=== PATIENT | male | born 2000 | race Caucasian/White ===

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

== ENCOUNTER 2024-08-01 20:42 | Emergency (ER) | payer BC, SELFPAY ==
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
--- NOTE | ~2024-08-01 | XR_ITS ---
EXAMINATION: XR HAND, RIGHT CLINICAL INFORMATION: Right hand pain. COMPARISON: None available. TECHNIQUE: PA, lateral, and oblique views of the right hand. FINDINGS: The bones and soft tissues are normal. No fracture. Alignment is anatomic. Joint spaces are maintained. No erosions or soft tissue calcifications. XR/XR hand RT min 3V IMPRESSION: Unremarkable examination. Electronically signed by: Adam Larkin MD 08/01/2024 09:29 PM EDT
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
[2024-08-01 20:58] VITALS: BP 167/94; PULSE 116; RESP 20; TEMP 36.8; O2SAT 94; BMI 23.1
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
[2024-08-01 21:40] LABS: MANUAL DIFF FLAG NO
[2024-08-01 21:41] LABS: Basophils Percent Auto 0.3 % (0-2); Eosinophils Absolute Auto 0.1 X10*3/uL (0.0-0.4); Eosinophils Percent Auto 0.3 % (0-4); Hematocrit 42.5 % (42.0-52.0); Hemoglobin 15.7 g/dl (14.0-18.0); Imm Gran Abs Auto 0.06 X10*3/uL (0.00-0.03); Imm Gran Pct Auto 0.4 % (0.0-0.4); Lymphocytes Absolute Auto 1.7 X10*3/uL (1.2-4.9); Lymphocytes Percent Auto 11.7 % (20-40); Mean Corpuscular HGB Conc 36.9 g/dl (31.0-36.0); Mean Corpuscular Hemoglobin 33.8 pg (27.0-33.0); Mean Corpuscular Volume 91.6 fL (80.0-98.0); Mean Platelet Volume 8.7 fL (9.4-12.4); Monocytes Absolute Auto 0.9 X10*3/uL (0.1-1.2); Monocytes Percent Auto 6.3 % (2-11); Neutrophils Absolute Auto 11.7 x10*3/uL (2.0-8.3); Platelet Count 372 X10*3/uL (160-400); Red Blood Count 4.64 X10*6/uL (4.60-5.80); Red Cell Distribution Width 11.9 % (11.0-16.0); White Blood Count 14.5 X10*3/uL (4.8-10.8)
[2024-08-01 21:51] LABS: Ethanol 189 mg/dL
[2024-08-01 21:58] LABS: Alanine Aminotransferase 24 U/L (0-40); Albumin Level 4.9 g/dL (3.5-5.0); Alkaline Phosphatase 139 U/L (39-117); Anion Gap 21 (12-20); Aspartate Amino Transferase 51 U/L (5-37); Bilirubin Direct 0.3 mg/dL (0.0-0.5); Bilirubin Total 1.2 mg/dL (0.0-1.0); Blood Urea Nitrogen 10 mg/dL (9-16); C Reactive Protein 0.48 mg/dL (< or = 0.50); Calcium 10.2 mg/dL (8.4-10.2); Carbon Dioxide 24 mmol/L (22-29); Chloride 100 mmol/L (96-108); Creatinine Clr Calc Pharmacy 156.2; Estimated Glomerular Filt Rate > 60; Glucose Random 103 mg/dL (60-115); Potassium 3.3 mmol/L (3.3-5.1); Sodium 142 mmol/L (135-145); Total Protein 8.1 g/dL (6.5-8.0)
[2024-08-01 22:25] LABS: Erythrocyte Sedimentation Rate 5 MM/HR (0-15)
[2024-08-02 00:06] VITALS: BP 167/94; PULSE 116; RESP 20; TEMP 36.8; O2SAT 98
== END 2024-08-02 00:08 | disposition home or self-care (01) ==
PROVIDERS: Physician Assistant Medical; Emergency Provider Internal Medicine
DX: S67.190A Crushing injury of right index finger, initial encounter (principal); V86.59XA Driver of other special all-terrain or other off-road motor vehicle injured in nontraffic accident, initial encounter; F10.90 Alcohol use, unspecified, uncomplicated; Y90.6 Blood alcohol level of 120-199 mg/100 ml; Y93.89 Activity, other specified; Y92.9 Unspecified place or not applicable; Y99.9 Unspecified external cause status
CPT/HCPCS: 36415; 70450; 72125; 73130; 80048; 80076; 80307; 82550; 85025; 85652; 86140; 99282; 99284

== ENCOUNTER 2024-08-07 08:39 | Outpatient (REF) | payer BC, SELFPAY | END 2024-08-07 08:40 | disposition home or self-care (01) | LOC: HO.HOSX 08:39 | DX: M79.641 Pain in right hand (principal) | CPT/HCPCS: 73130 ==

== ENCOUNTER 2024-08-07 08:40 | Outpatient (AMB) | payer BC, SELFPAY ==
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
== END 2024-08-07 09:06 | disposition home or self-care (01) ==
LOC: HO.HOS 08:40
DX: S67.21XA Crushing injury of right hand, initial encounter (principal)
CPT/HCPCS: 99203

== ENCOUNTER 2025-02-16 04:17 | Emergency (ER) | payer BC, SELFPAY ==
--- NOTE | 2025-02-16 | ECG_ITS ---
Test Reason : ETOH Blood Pressure : */* mmHG Vent. Rate : 79 BPM Atrial Rate : 79 BPM P-R Int : 132 ms QRS Dur : 94 ms QT Int : 340 ms P-R-T Axes : 64 81 63 degrees QTcB Int : 389 ms Sinus rhythm with occasional Premature ventricular complexes Otherwise normal ECG No previous ECGs available Referred By: Generic ED Physician Electronically Signed By: Mark Preston
[2025-02-16 04:30] VITALS: BP 134/87; BP 135/80; PULSE 110; RESP 18; TEMP 37.2; O2SAT 98; O2SAT 99; BMI 22.6
--- NOTE | 2025-02-16 04:39 | MHC.EVENTN ---
PT [employer] WITH [employer], AND [employer] FROM [employer]. [facility] ARE ON [address] [facility]
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
[2025-02-16 05:20] VITALS: BP 134/87; PULSE 110; RESP 18; TEMP 37.2; O2SAT 99
== END 2025-02-16 05:41 ==
LOC: HO.ED 05:23
PROVIDERS: Emergency Provider Emergency Medicine
DX: S80.811A Abrasion, right lower leg, initial encounter (principal); R45.851 Suicidal ideations; F10.129 Alcohol abuse with intoxication, unspecified; X58.XXXA Exposure to other specified factors, initial encounter; Y93.9 Activity, unspecified; Y92.9 Unspecified place or not applicable; Y99.8 Other external cause status; Z79.899 Other long term (current) drug therapy; Y90.9 Presence of alcohol in blood, level not specified
CPT/HCPCS: 93005; 99285

== ENCOUNTER → 2025-02-16 04:57 | Outpatient (BNV) | payer BC, SELFPAY | PROVIDERS: Emergency Provider Emergency Medicine; Visit Provider Internal Medicine Cardiovascular Disease | DX: I49.3 Ventricular premature depolarization (principal) | CPT/HCPCS: 93010 ==

== ENCOUNTER 2025-03-26 14:28 | Emergency (ER) | payer BC, SELFPAY ==
--- NOTE | ~2025-03-26 | XR_ITS ---
EXAMINATION: XR FOOT, RIGHT CLINICAL INFORMATION: dropped ramp on foot COMPARISON: None available. TECHNIQUE: AP, lateral, and oblique views of the right foot. FINDINGS: The bones and soft tissues are normal. No fracture. Alignment is anatomic. Joint spaces are maintained. XR/XR foot RT min 3V IMPRESSION: Normal right foot. Electronically signed by: Giovanny Haney MD 03/26/2025 02:44 PM EDT
[2025-03-26 14:30] VITALS: BP 144/81; PULSE 81; RESP 16; TEMP 36.6; O2SAT 98; BMI 21.7
--- NOTE | 2025-03-26 14:36 | ED_ITS ---
HPI - Extremity Injury (Lower) General Chief Complaint: Extremity Injury, Lower Stated Complaint: Dropped Loading Ramp On R Foot- Swelling Time Seen by Provider: 03/26/25 14:44 Source: patient Mode of arrival: ambulatory Limitations: no limitations History of Present Illness ED Provider: Buffy June PA-C HPI Narrative: Patient is a 24 year old assigned male at with no reported medical history presenting to the emergency department today with a right great toe injury. Patient states that he dropped a loading ramp on his right great toe that is approximately 50lbs. Patient denies any dizziness, lightheadedness, abdominal pain, nausea, vomiting, fever, chills, blurry vision, double vision, loss of vision, chest pain, difficulty breathing, shortness of breath, back pain, night sweats, pain with urination, increased urinary frequency, increased urinary urgency, blood in his urine or stool, syncope or a near syncopal episode, bowel incontinence, bladder incontinence, or any other complaints at this time. Relieving factors: immobilization Exacerbating factors: movement and palpation Related Data Home Medications ?Medication ?Instructions ?Recorded ?Confirmed No Known Home Meds 08/07/24 08/07/24 Allergies Allergy/AdvReac Type Severity Reaction Status Date / Time codeine Allergy Unknown Verified 03/26/25 14:32 Review of Systems 2 Constitutional: Constitutional: Reports no additional constitutional complaints, Denies chills, Denies fever(s) and Denies night sweats Eyes: Eyes: Reports no additional eye complaints, Denies blurry vision, Denies change in vision, Denies diplopia, Denies eye discharge, Denies loss of vision and Denies eye pain ENT: Denies dizziness Cardiovascular: Cardiovascular: Reports no additional cardiovascular complaints, Denies chest pain, Denies lightheadedness, Denies Loss of Consciousness and Denies dyspnea Respiratory: Respiratory: Reports no additional respiratory complaints and Denies dyspnea Gastrointestinal: Gastrointestinal: Reports no additional gastrointestinal complaints, Denies abdominal pain, Denies melena, Denies hematochezia, Denies change in bowel habits and Denies change in stool character Genitourinary: Genitourinary: Reports no additional male genitourinary complaints, Denies hematuria, Denies oliguria, Denies difficulty urinating, Denies dysuria, Denies urinary frequency, Denies urinary hesitancy, Denies urinary incontinence and Denies urinary urgency Musculoskeletal: Musculoskeletal: Reports no additional musculoskeletal complaints, Denies numbness and Denies tingling Comments: right great toe pain Neurologic: Denies dizziness, Denies loss of vision, Denies numbness and Denies tingling Psychiatric: Psychiatric: Reports no additional psychiatric complaints Endocrine: Endocrine: Reports no additional endocrine complaints Hematologic/Lymphatic: Hematologic/Lymphatic: Reports no additional hematologic/lymphatic complaints Allergic/Immunologic: Allergic/Immunologic: Reports no additional allergic/immunologic complaints [facility] Past Medical History Attestation statement: The following information was validated with the patient. Source: old records reviewed and nursing notes reviewed Social History Social History Alcohol intake: current Alcohol intake frequency: a few times a month Smoked in Last 30 Days: Yes Use of substances other than those prescribed or required for medical reasons: Unknown Advance Directives: No Advance Directives Information Provided: Yes Physical Exam 2 Vital Signs: Vital Signs: Last Vital Signs Temp 97.8 F 03/26/25 15:30 Pulse 81 03/26/25 15:30 Resp 16 03/26/25 15:30 BP 144/81 H 03/26/25 15:30 Pulse Ox 98 03/26/25 15:30 O2 Del Method Room Air 03/26/25 15:30 BMI result Body Mass Index 21.7 Const: General: cooperative, no acute distress, alert and awake Nutritional Appearance: well nourished Orientation/consciousness: patient oriented x3 HEENT: Head: Yes normal to inspection and Yes atraumatic Ears: hearing grossly normal bilaterally and external ears normal General nose exam: Normal external nose present, no nasal discharge noted and no epistaxis Face and sinus: Yes normal facial exam, No abrasion and No laceration Mouth: Normal oral and palatal mucosa present, no drooling and no muffled voice Eyes: General: appearance normal, both eyes and all related structures P eriorbital: periorbital findings normal Eyelids: Yes eyelids normal C onjunctivae: conjunctivae normal Pupils: Equal, round and reactive pupils present EOM: EOMs intact bilaterally Neck: Neck: Yes normal visual inspection, Yes full ROM and Yes no lymphadenopathy Resp: Effort & Inspection: normal respiratory effort and able to speak in complete sentences Neuro: General: patient oriented x3, moves all extremities and CN's II-XI intact bilaterally Cranial nerves: Yes Equal, round and reactive pupils present Cognition (Neuro): normal cognition Extrem: Other: minimal bruising present to the dorsal aspect of the right great toe pain with palpation of the right great toe General: Yes full ROM and Yes capillary refill normal Psych: Appearance: grossly normal Mental Status: mental status grossly normal Affect: normal affect Attitude: cooperative Thought process: N ormal thought process present Thought content: Normal thought content present Insight: Good insight present (Psych) Course Course Course Narrative: 03/26/25 1436 ROSENDA Hammonds This is a Rapid Medical Examination (RME) performed by Maurizio Hewitt PA-C in triage. Full HPI, ROS, assessment and treatment plan per primary provider in the Main ED. Hx: 24 yo M here with right foot pain after dropping a 50-60 lb loading ramp on it [employer]. throbbin pain to medial aspect. ambulating w/ steady gait. tdap UTD Plan: xrs Medications Administered Discontinued Medications Generic Name Dose Route Start Last Admin Trade Name Freq PRN Reason Stop Dose Admin Acetaminophen 975 mg 03/26/25 15:21 03/26/25 15:26 Acetaminophen 325 Mg Tablet PO 03/26/25 15:22 975 mg ONCE ONE Administration Medical Decision Making Medical Decision Making [facility] Narrative: Patient is a 24 year old assigned male at with no reported medical history presenting to the emergency department today with a right great toe injury. Patient's physical exam was as noted in the physical exam portion of this note. Patient's right foot x-ray was read as negative however, upon review of the images myself - I saw a distal right great toe fracture. I explained my physical exam findings as well as all test results to the patient. I answered all questions asked by the patient. Patient's right foot was placed in a post-op shoe. Patient's PMS was intact prior to and after post-op shoe placement. I stressed the importance of the patient taking his medication as directed (either prescribed or as the over the counter packaging recommends). I stressed the importance of the patient following up with his primary care provider and the orthopedic team. I stressed the importance of the patient returning to the emergency department immediately if his symptoms were to worsen or if he were to develop any dizziness, shortness of breath, difficulty breathing, chest pain, blurry vision, loss of vision, nausea, vomiting, abdominal pain, fever, chills, back pain, or any other complaints. Patient verbalized agreement and understanding with this treatment plan and discharge Differential Diagnosis Differential Diagnoses: The differential diagnosis associated with the presentation includes Right great toe fracture Right great toe pain Admission/Observation Consideration of admission/observation: Escalation of care including admission/observation considered Patient would have been admitted to the hospital had his work up had any findings where hospital admission was appropriate and his clinical presentation warranted hospital admission. Independent Interpretation I performed an independent interpretation of an: Plain X-Ray Interpretation: My interpretation of this image is in the MDM Rationale portion of this note, below is the radiologist's impression of this imaging study. L EXAMINATION: XR FOOT, RIGHT CLINICAL INFORMATION: dropped ramp on foot COMPARISON: None available. TECHNIQUE: AP, lateral, and oblique views of the right foot. FINDINGS: The bones and soft tissues are normal. No fracture. Alignment is anatomic. Joint spaces are maintained. XR/XR foot RT min 3V IMPRESSION: Normal right foot. Electronically signed by: Giovanny Haney MD 03/26/2025 02:44 PM EDT RP Dictated By: Giovanny Haney MD Signed By: Electronically signed by Giovanny Haney MD 03/26/25 1444 Radiology Impression Discussion of test interpretation with radiology: I have reviewed the radiologist's reading. Procedures Orthopedic Splinting/Casting Injury #1: Side: right Lower Extremity Injury Location: toe (great) Lower Extremity Immobilizer: post-op shoe Discharge Plan Discharge Clinical Impression: Fracture of toe Qualifiers: Encounter type: initial encounter Toe: great toe Fracture type: closed Fracture alignment: nondisplaced Laterality: right Patient Disposition: Home, Self-Care Instructions: Toe Fracture (ED), Post Surgical Shoe (ED) Additional Instructions: Follow up with a primary care provider and the orthopedic team. Wear the post-op shoe when walking / ambulating. Return to the emergency department immediately if your symptoms worsen or if you develop any numbness, tingling, dizziness, shortness of breath, difficulty breathing, chest pain, blurry vision, loss of vision, nausea, vomiting, abdominal pain, fever, chills, back pain, or any other complaints. L If you do not have a primary care provider - call any of the below numbers to establish and follow up with a primary care provider. [facility] Primary Care ([place]) [phone] [place] [address] [place], [address] [facility] Primary Care ([address]) [phone] [address] [facility], [address] [facility], [address] [facility] Primary Care ([address]) [phone] [address] [facility], [address] [facility], [address] [facility] Primary Care ([place]) [phone] [place] [address] [address] [facility], [address] [facility] Family Medicine [phone] [address] [facility], [address] Please see the information below about our Patient Portal. If you are not yet enrolled in the [facility] Patient Portal, you will receive an enrollment email invitation following your visit to any [facility] setting. You may also self-enroll in the Patient Portal by visiting our website: [email or web address] The following information is required to access the Patient Portal: - Your [facility] Medical Record Number - Your personal home email address (must match what is in your electronic medical record, Registration staff can assist with this) - Name - Date of Capabilities of the Patient Portal: - Message some providers - View upcoming appointments - Access your health summary, medical history, and visit history - View current conditions and allergies - View procedure and lab results - View your medications, including guidelines, side effects, and precautions - Complete pre-appointment questionnaires requested by your provider - Ready summary reports of your office visits and procedures To access the Patient Portal Mobile Jono, follow these directions: - Search [employer] in the Jono Store or [email or web address] Store - Download the Jono - Search for [facility] - Enter your login/password Prescriptions: No Action No Known Home Meds Referrals: [facility] Orthopedic Surgeons [Provider Group] Referral Note: Call to establish and follow up with an orthopedic provider. Interventions: ED Discharge Assessment Last Done: 03/26/25 15:30 Discharge Date/Time: 03/26/25 15:45 Print Language: Iranian
--- OUTSIDE RECORDS SUMMARY | 2025-03-26 15:08 | XMS_ITS | Patient Health Record ---
Author Organization [facility] Address [address] [place] [address] Care Team Providers Care Ppap Coordinator Name Role Phone Heidi BEARDEN, Juan M Primary Care Provider Unavail able Alex Rivera Unavailable [phone] Reason For Referral No Information Medications Medication SIG (Take, Route, Frequency, Duration) Notes Start Date End Date Status Sertraline HCl 25 MG Orally Once a day Not-Taking School Note . . . Pt was seen in [facility] today; Duration: . 02/03/2019 Active Methylphenidate 72mg daily Not -Taking Cephalexin 500 MG 1 tablet Orally Twic e a day; Duration: 10 day(s) Not-Gal ing Social History Tobacco Use: Social History Observation Description Date Details (start date - stop date) Never Smoker NA - NA Tobacco Use/Smoking Question Answer Notes Are you a: nonsmoker Additional Findings: Tobacco Non-User Current no n-smoker Alcohol Screen Question Answer Notes Did you have a drink containing alcohol in the p ast year? No Points 0 Interpretation Negative Tobacco use other than smoking: Question Answer Notes Are you an other tobacco user? No Plan Of Treatment Pending Test Test Name Order Date [id number] Plate 02/03/2019 [id number] 03/13/2019 [id number] 07/17/2019 [id number] SKIN/TISSUE 08/14/2019 [id number] I&D ABSCESS- SIMPLE,SINGLE 018 [id number] I&D ABSCESS- SIMPLE,SINGLE 018 [id number] I&D ABSCESS- SIMPLE,SINGLE 019 Insurance Providers Payer Name Payer Address Payer Phone Subscriber Number Group Number Insured Name Patient Relationship to Insured Coverage Start Date Coverage End Date [facility] [place] [address] [place] [address] [id number] Mariscal Self - patient is the insured Medical (General) History Medical History History ICD Code Anxiety ADHD Surgical History Surgery Date(Month/Year)
[2025-03-26] MEDS: Acetaminophen 325 MG TABLET 975 MG PO (15:26)
[2025-03-26 15:30] VITALS: BP 144/81; PULSE 81; RESP 16; TEMP 36.6; O2SAT 98
== END 2025-03-26 15:45 | disposition home or self-care (01) ==
PROVIDERS: Emergency Provider Emergency Medicine
DX: S92.404A Nondisplaced unspecified fracture of right great toe, initial encounter for closed fracture (principal); W20.8XXA Other cause of strike by thrown, projected or falling object, initial encounter; Y93.89 Activity, other specified; Y92.414 Local residential or business street as the place of occurrence of the external cause; Y99.9 Unspecified external cause status
CPT/HCPCS: 73630; 99283; 99284

== ENCOUNTER → 2025-03-26 14:31 | Outpatient (BNV) | payer BC, SELFPAY | PROVIDERS: Emergency Provider Emergency Medicine; Visit Provider Radiology Diagnostic Radiology | DX: S92.404A Nondisplaced unspecified fracture of right great toe, initial encounter for closed fracture (principal); W20.8XXA Other cause of strike by thrown, projected or falling object, initial encounter | CPT/HCPCS: 73630 ==

== ENCOUNTER 2025-03-28 22:51 | Emergency (ER) | payer BC, SELFPAY ==
--- NOTE | ~2025-03-28 | XR_ITS ---
CLINICAL HISTORY: trauma 3 view right foot Comparison: CR/SR - XR FOOT RT MIN 3V - 03/26/25 14:40 EDT Findings: Fracture of the tip of the 1st distal phalanx. No other fractures. No dislocation. No ankle effusion. No radiopaque foreign body. IMPRESSION: 1. Fracture of the right first toe distal phalanx tip. This document has been electronically signed by: Jovanny Casarez MD on 03/29/2025 01:22:36
[2025-03-28 23:10] VITALS: BP 111/68; PULSE 80; RESP 16; TEMP 36.8; O2SAT 98; BMI 23.1
--- OUTSIDE RECORDS SUMMARY | 2025-03-29 00:17 | XMS_ITS | Patient Health Record ---
Author Organization [facility] Address [address] [facility] [place] [address] Care Team Providers Care University Registrar Name Role Phone Heidi BEARDEN, Juan M Primary Care Provider Unavail able Alex Rivera Unavailable [phone] Reason For Referral No Information Medications Medication SIG (Take, Route, Frequency, Duration) Notes Start Date End Date Status Sertraline HCl 25 MG Orally Once a day Not-Taking School Note . . . Pt was seen in [facility] today; Duration: . 02/03/2019 Active Methylphenidate 72mg daily Not -Taking Cephalexin 500 MG 1 tablet Orally Twic e a day; Duration: 10 day(s) Not-Gla ing Social History Tobacco Use: Social History [...] Treatment Pending Test Test Name Order Date [id number] Plate 02/03/2019 [id number] 03/13/2019 [id number] 07/17/2019 [id number] SKIN/TISSUE 08/14/2019 [id number] I&D ABSCESS- SIMPLE,SINGLE 018 [id number] I&D ABSCESS- SIMPLE,SINGLE 018 [id number] I&D ABSCESS- SIMPLE,SINGLE 019 Insurance Providers Payer Name Payer Address Payer Phone Subscriber Number Group Number Insured Name Patient Relationship to Insured Coverage Start Date Coverage End Date [facility] [address] [place] [address] [id number] Wilver Mariscal Self - patient is the insured Medical (General) History Medical History History ICD Code Anxiety ADHD Surgical History Surgery Date(Month/Year)
--- NOTE | 2025-03-29 02:03 | ED_ITS ---
HPI - General Adult General Chief complaint: Extremity Injury, Lower Stated complaint: LEG PAIN, TOE PAIN , ETOH Time Seen by Provider: 03/28/25 23:40 Source: patient Limitations: no limitations History of Present Illness ED Provider: Hayley Sherman PA-C HPI narrative: 24-year-old male with known right great toe distal phalanx fracture, presents with right great toe laceration. Patient states his dog jumped on his foot, subsequently lacerating the top of the right great toe, he thinks the nail is dislodged. Tetanus up-to-date. Related Data Previous Rx's ?Medication ?Instructions ?Recorded cephalexin 500 mg capsule 500 mg PO QID #28 caps 03/29 Allergies Allergy/AdvReac Type Severity Reaction Status Date / Time codeine Allergy Unknown Verified 03/28/25 23:12 Review of Systems 2 Review of Systems: Yes all other systems are reviewed and are negative Constitutional: Constitutional: Denies fatigue and Denies fever(s) Musculoskeletal: Musculoskeletal: Reports arthralgias and Reports joint swelling Endocrine: Endocrine: Denies fatigue PMFSH Past Medical History Attestation statement: The following information was validated with the patient. Social History Social History Alcohol intake: current Alcohol intake frequency: 0-2 drinks per day Smoked in Last 30 Days: Yes Use of substances other than those prescribed or required for medical reasons: No Advance Directives: No Advance Directives Information Provided: No Do you have a plan to hurt others: No Plan Physical Exam ED Vital Signs: Vital Signs - 24 hr 03/28/25 23:10 Temperature 98.2 F Pulse Rate 80 Respiratory Rate 16 Blood Pressure 111/68 Pulse Oximetry 98 BMI result Body Mass Index 23.1 Const Other: Alert Orientation/consciousness: patient oriented x3 Resp Effort & Inspection: normal respiratory effort Cardio Other: Normal peripheral perfusion Skin Other: Warm dry no rash Neuro General: patient oriented x3, gait normal, no focal motor deficits and CN's II- XI intact bilaterally Extrem Other: Psych Other: Cooperative Medications Administered Discontinued Medications Generic Name Dose Route Start Last Admin Trade Name Freq PRN Reason Stop Dose Admin Cefazolin Sodium 2 gm 03/29/25 02:33 03/29/25 02:49 Cefazolin Sodium 1 Gm Vial IVPUSH 03/29/25 02:34 Not Given ONCE ONE Cefazolin Sodium/Dextrose 2 gm in 50 mls @ 100 mls/hr 03/29/25 02:45 03/29/25 03:18 Ancef IV 03/29/25 03:14 Infused ONCE ONE Infusion Lidocaine/Epinephrine 10 ml 03/29/25 02:33 03/29/25 02:48 Lidocaine Hcl 1%/Epi 1:100,000 10 Ml Vial INFILTRATI 03/29/25 02:34 10 ml ONCE ONE Administration Procedures Procedure Narrative Procedure Narrative: Toenail removal. The area was prepped using aseptic technique. Digital block administered using 1% lidocaine with epi, 10 mL total. The nail was lifted, there was subsequent hematoma overlying the bed itself which was evacuated. The wound was dressed with bacitracin and gauze dressing. The patient tolerated the procedure well. Medical Decision Making Medical Decision Making MDM Narrative: 24-year-old male with known right great toe distal phalanx fracture, presents with right great toe laceration. Patient states his dog jumped on his foot, subsequently lacerating the top of the right great toe, he thinks the nail is dislodged. Tetanus up-to-date. Problem: Known fracture History: Per patient I have considered the following differential diagnoses: Open fracture, nail avulsion, laceration, contusion, additional fracture or dislocation Plan: Obtained an x-ray, there was no additional bony injury no dislocation. This is now classified as an open fracture. We will give 2 g of cefazolin, we will remove the nail. 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 I have independently reviewed the following tests: X-ray right foot from March 26:FINDINGS: The bones and soft tissues are normal. No fracture. Alignment is anatomic. Joint spaces are maintained. XR/XR foot RT min 3V IMPRESSION: Normal right foot. X-ray right foot: 3 view right foot Comparison: CR/SR - XR FOOT RT MIN 3V - 03/26/25 14:40 EDT Findings: Fracture of the tip of the 1st distal phalanx. No other fractures. No dislocation. No ankle effusion. No radiopaque foreign body. IMPRESSION: 1. Fracture of the right first toe distal phalanx tip. Discharge Plan Discharge Clinical Impression: Open fracture of great toe of right foot, Traumatic avulsion of nail plate of toe Patient Disposition: Home, Self-Care Instructions: Toe Fracture (ED), Nail Removal (ED), Walking Boot (ED) Additional Instructions: You sustained a fracture of the right great toe, as you know. There were no additional fractures. The nail had to be removed. Keep the area clean and dry. Take the cephalexin as directed. Call your photovoltaic power systems engineer tomorrow to schedule an appointment. You also need to keep your orthopedic appointment, the contact was given to you during your 1st visit to the emergency department on March 26. Prescriptions: New cephalexin 500 mg capsule 500 mg PO QID Qty: 28 0RF Print Language: Northern Irish
[2025-03-29] MEDS: ceFAZolin Sodium/Dextrose,Iso 2 GM/50 ML PIGGYBACK IV (02:48)
[2025-03-29] MEDS: Lidocaine HCl 1%/Epi 1:100,000 10 ML VIAL INFILTRATI (02:48)
--- NOTE | 2025-03-29 02:53 | PC.NURSE ---
laceration soaked and cleaned, medicated per Mar, positive cms and pedal pulses, Iv placed in left AC, medicated per mar.
[2025-03-29 05:17] VITALS: BP 108/66; PULSE 84; RESP 20; TEMP 36.1; O2SAT 99
--- NOTE | 2025-03-29 05:18 | PC.NURSE ---
Clean dressing applied, bleeding under control, post op boot applied, reviewed discharge instructions with pt. pt verbalized understanding, no sign of distress upon discharge, pt had a steady gait.
[2025-03-29 05:19] VITALS: BP 108/66; PULSE 84; RESP 20; TEMP 36.1; O2SAT 99
== END 2025-03-29 05:20 | disposition home or self-care (01) ==
PROVIDERS: Emergency Provider Emergency Medicine; PCP Internal Medicine
DX: S92.421B Displaced fracture of distal phalanx of right great toe, initial encounter for open fracture (principal); S91.201A Unspecified open wound of right great toe with damage to nail, initial encounter; W54.8XXA Other contact with dog, initial encounter; Y93.9 Activity, unspecified; Y92.9 Unspecified place or not applicable; Y99.9 Unspecified external cause status
CPT/HCPCS: 11730; 73630; 96365; 99284; J0690; J2004

== ENCOUNTER → 2025-03-29 00:03 | Outpatient (BNV) | payer BC, SELFPAY | PROVIDERS: PCP Internal Medicine; Visit Provider Radiology Diagnostic Radiology | DX: S92.421A Displaced fracture of distal phalanx of right great toe, initial encounter for closed fracture (principal) | CPT/HCPCS: 73630 ==

== ENCOUNTER 2025-07-17 11:50 | Emergency (ER) | payer BC, SELFPAY ==
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
[2025-07-17 11:55] VITALS: BP 149/72; PULSE 118; RESP 20; TEMP 37; O2SAT 97; BMI 24.4
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
--- OUTSIDE RECORDS SUMMARY | 2025-07-17 12:14 | XMS_ITS | Patient Health Record ---
Author Organization [facility] Address [address] [place] [address] Care Team Providers Care Door Builder Name Role Phone Heidi BEARDEN, Juan M Primary Care Provider Unavail able Alex Rivera Unavailable [phone] Reason For Referral No Information Medications Medication SIG (Take, Route, Frequency, Duration) Notes Start Date End Date Status Sertraline HCl 25 MG Orally Once a day Not-Taking School Note . . . Pt was seen in [facility] today; Duration: . 02/03/2019 Active Methylphenidate 72mg [...] Treatment Pending Test Test Name Order Date [id number] Plate 02/03/2019 [id number] 03/13/2019 [id number] 07/17/2019 [id number] SKIN/TISSUE 08/14/2019 [id number] I&D ABSCESS- SIMPLE,SINGLE [id number] I&D ABSCESS- SIMPLE,SINGLE 018 [id number] I&D ABSCESS- SIMPLE,SINGLE 019 Insurance Providers Payer Name Payer Address Payer Phone Subscriber Number Group Number Insured Name Patient Relationship to Insured Coverage Start Date Coverage End Date [facility] [address] [place] [address] [id number] Mariscal Self - patient is the insured Medical (General) History Medical History History ICD Code Anxiety ADHD Surgical History Surgery Date(Month/Year)
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
[2025-07-17] MEDS: iohexoL 350 MG/ML 100 ML INFUS..BTL 85 ML IV (14:07)
[2025-07-17] MEDS: Lidocaine HCl 1 % MPF 5 ML VIAL INFILTRATI ×2 (14:23)
[2025-07-17 17:21] VITALS: BP 131/70; PULSE 98; RESP 18; TEMP 36.7; O2SAT 98
== END 2025-07-17 17:22 | disposition home or self-care (01) ==
PROVIDERS: Emergency Provider Emergency Medicine; PCP Internal Medicine
DX: S51.811A Laceration without foreign body of right forearm, initial encounter (principal); S00.83XA Contusion of other part of head, initial encounter; M79.604 Pain in right leg; M25.511 Pain in right shoulder; R51.9 Headache, unspecified; M54.2 Cervicalgia; M79.641 Pain in right hand; R07.89 Other chest pain; V47.5XXA Car driver injured in collision with fixed or stationary object in traffic accident, initial encounter; Y93.89 Activity, other specified; Y92.488 Other paved roadways as the place of occurrence of the external cause; Y99.8 Other external cause status
CPT/HCPCS: 12001; 70450; 71260; 72125; 73110; 73130; 74177; 96374; 99285; J0131; J2003; Q9967

== ENCOUNTER → 2025-07-17 11:59 | Outpatient (BNV) | payer SELFPAY | PROVIDERS: Emergency Provider Emergency Medicine; PCP Internal Medicine; Visit Provider Radiology Diagnostic Radiology | DX: M54.2 Cervicalgia (principal); S00.93XA Contusion of unspecified part of head, initial encounter; M79.631 Pain in right forearm; M79.89 Other specified soft tissue disorders; M25.531 Pain in right wrist; Z04.3 Encounter for examination and observation following other accident; V89.2XXA Person injured in unspecified motor-vehicle accident, traffic, initial encounter | CPT/HCPCS: 70450; 71260; 72125; 73110; 73130; 74177 ==